=== PATIENT | male | born 1995 | race Caucasian/White ===

== ENCOUNTER → 2018-01-01 08:32 | Outpatient (CLI) | payer BC, SELFPAY ==
--- NOTE | 2018-01-01 08:41 | XR_ITS ---
XR knee LT 3V HISTORY: ITS.REASON: LT KNEE PAIN ORDERING PHYSICIAN: Margarita Sylvester PATIENT AGE: 22 years COMPARISON: FINDINGS: No fracture or dislocation. No lytic or blastic change. Normal mineralization. No significant arthritic changes evident. No other significant findings IMPRESSION: Negative Knee
== END ==
PROVIDERS: PCP Physician Assistant; Visit Provider Physician Assistant
DX: M25.562 Pain in left knee (principal)
CPT/HCPCS: 73562

== ENCOUNTER → 2018-07-12 08:26 | Outpatient (CLI) | payer BC, SELFPAY ==
[2018-07-12 15:05] LABS: Alanine Aminotransferase 37 U/L (12-78); Albumin Level 4.3 gm/dL (3.4-5.0); Albumin/Globulin Ratio 1.3 (1.1-1.8); Alkaline Phosphatase 93 U/L (46-116); Anion Gap 13.2 mEq/L (5-15); Aspartate Amino Transferase 24 U/L (15-37); Bilirubin,Total 1.1 mg/dL (0.2-1.0); Blood Urea Nitrogen 9 mg/dL (7-18); Calcium 9.4 mg/dL (8.5-10.1); Carbon Dioxide 29 mmol/L (21.0-32.0); Chloride 102 mmol/L (98-107); Chol/HDL Ratio 3.2 (1-3.5); Cholesterol 143 mg/dL (140-200); Creatinine,Serum 0.99 mg/dL (0.70-1.30); Estimated Glomerular Filt Rate 94 ml/min (>60); GFR (African American) 113 ML/MIN (>60); Globulin 3.2 gm/dl (1.3-3.2); Glucose 86 mg/dL (74-106); HDL Cholesterol 45 mg/dL (27-67); LDL Cholesterol 88 mg/dL (0-130); Potassium 4.2 mmoL/L (3.5-5.1); Sodium 140 mmol/L (136-145); Thyroid Stimulating Hormone 2.49 uIU/ml (0.358-3.740); Total Protein,Serum 7.5 gm/dL (6.4-8.2); Triglycerides 51 mg/dL (30-200); VLDL Cholesterol 10 mg/dL (0-40)
[2018-07-13 08:28] LABS: FSH 3.2 mIU/mL (1.5-12.4)
[2018-07-13 12:15] LABS: PSA, Free 0.18 ng/mL; Prolactin 17.2 ng/mL (4.0-15.2); Prostate Specific Ag 0.7 ng/mL (0.0-4.0)
[2018-07-16 06:09] LABS: Testosterone, Total, LC/MS 232.2 ng/dL (264.0-916.0); Testosterone,Free 9.9 pg/mL (9.3-26.5)
== END ==
PROVIDERS: PCP Physician Assistant; Visit Provider Physician Assistant
DX: R53.83 Other fatigue (principal); E29.1 Testicular hypofunction
CPT/HCPCS: 36415; 80053; 80061; 83001; 83002; 84146; 84153; 84154; 84402; 84403; 84443

== ENCOUNTER → 2018-07-19 10:35 | Outpatient (CLI) | payer BC, SELFPAY | PROVIDERS: PCP Physician Assistant; Visit Provider Physician Assistant | DX: R79.89 Other specified abnormal findings of blood chemistry (principal); E22.9 Hyperfunction of pituitary gland, unspecified; N62 Hypertrophy of breast; R45.4 Irritability and anger; R45.86 Emotional lability; R63.5 Abnormal weight gain; R53.83 Other fatigue ==

== ENCOUNTER → 2018-07-26 08:42 | Outpatient (CLI) | payer BC, SELFPAY | PROVIDERS: PCP Physician Assistant; Visit Provider Physician Assistant | DX: R79.89 Other specified abnormal findings of blood chemistry (principal); R22.9 Localized swelling, mass and lump, unspecified; N62 Hypertrophy of breast; R45.4 Irritability and anger; R45.86 Emotional lability; R63.5 Abnormal weight gain; R53.83 Other fatigue ==

== ENCOUNTER → 2019-02-06 08:35 | Outpatient (CLI) | payer BC, SELFPAY ==
--- NOTE | 2019-02-06 08:41 | XR_ITS ---
XR shoulder LT min 2V HISTORY: ITS.REASON: LT SHOULDER PAIN ORDERING PHYSICIAN: Monique Marie PATIENT AGE: 23 years Comparison: ... FINDINGS: No fracture or dislocation. No lytic or blastic change. There is normal mineralization. The joint spaces are well-preserved. No significant degenerative/arthritic changes. No erosive changes evident. IMPRESSION: Negative, no acute finding
== END ==
PROVIDERS: PCP Family Medicine; Visit Provider Family Medicine
DX: M25.512 Pain in left shoulder (principal)
CPT/HCPCS: 73030

== ENCOUNTER → 2019-07-30 08:45 | Outpatient (CLI) | payer BC, SELFPAY ==
[2019-07-30 15:19] LABS: Anion Gap 12.9 mEq/L (5-15); Blood Urea Nitrogen 9 mg/dL (7-18); Calcium 9.2 mg/dL (8.5-10.1); Carbon Dioxide 29 mmol/L (21.0-32.0); Chloride 104 mmol/L (98-107); Creatinine,Serum 1.01 mg/dL (0.70-1.30); Estimated Glomerular Filt Rate 91 ml/min (>60); GFR (African American) 110 ML/MIN (>60); Glucose 90 mg/dL (74-106); Potassium 3.9 mmoL/L (3.5-5.1); Sodium 142 mmol/L (136-145); Thyroid Stimulating Hormone 1.97 uIU/ml (0.358-3.740)
[2019-07-31 09:37] LABS: FSH 2.2 mIU/mL (1.5-12.4); LH 7.4 mIU/mL (1.7-8.6)
[2019-07-31 21:12] LABS: Estradiol 45.3 pg/mL (7.6-42.6)
[2019-08-01 17:25] LABS: Adrenocorticotropic Hormone 60.6 pg/mL (7.2-63.3)
[2019-08-04 13:34] LABS: Testosterone, Total, LC/MS 341.7 ng/dL (264.0-916.0); Testosterone,Free 12.3 pg/mL (9.3-26.5)
[2019-08-05 10:31] LABS: Cortisol,F,ug/L,U 18 ug/L (Undefined)
== END ==
PROVIDERS: Visit Provider Internal Medicine Endocrinology, Diabetes & Metabolism
DX: E34.9 Endocrine disorder, unspecified (principal); E29.1 Testicular hypofunction
CPT/HCPCS: 36415; 80048; 82024; 82530; 82533; 82670; 83001; 83002; 83498; 84402; 84403; 84443

== ENCOUNTER 2019-09-01 08:21 | Outpatient (CLI) | payer BC, SELFPAY ==
[2019-09-01 08:48] VITALS: BP 141/90; PULSE 86; RESP 18
[2019-09-01 09:31] VITALS: BMI 32.1
== END 2019-09-01 10:05 | disposition home or self-care (01) ==
PROVIDERS: Visit Provider Internal Medicine Endocrinology, Diabetes & Metabolism
DX: E27.8 Other specified disorders of adrenal gland (principal)
CPT/HCPCS: 83498; 96374; 96375

== ENCOUNTER → 2020-06-08 07:21 | Outpatient (CLI) | payer BC, SELFPAY ==
--- NOTE | 2020-06-08 07:29 | XR_ITS ---
PROCEDURE: XR SHOULDER LT MIN 2V CLINICAL INDICATION: PARATHESIA LEFT ARM PAIN LEFT SHOULDER COMPARISON: No exams were available for comparison FINDINGS: No fracture or dislocation. No lytic or blastic change. There is normal mineralization. The joint spaces are well-preserved. No significant degenerative/arthritic changes. No erosive changes evident. Other findings:None. IMPRESSION: No acute findings. Dictated by: Jonas Rojo MD 06/08/2020 14:27 Jonas Rojo MD in [place] 06/08/2020 14:27
--- NOTE | 2020-06-08 07:31 | XR_ITS ---
PROCEDURE: XR ELBOW LT MIN 3V CLINICAL INDICATION: PAIN LEFT ELBOW COMPARISON: No exams were available for comparison FINDINGS: No fracture or dislocation. No lytic or blastic change. There is normal mineralization. The joint spaces are well-preserved. No significant degenerative/arthritic changes. No erosive changes evident. Other findings:None. IMPRESSION: No acute findings. Dictated by: Jonas Rojo MD 06/08/2020 14:26 Jonas Rojo MD in [place] 06/08/2020 14:26
== END ==
PROVIDERS: PCP Nurse Practitioner Family; Visit Provider Nurse Practitioner Family
DX: M25.512 Pain in left shoulder (principal); M25.522 Pain in left elbow; R20.2 Paresthesia of skin; G89.29 Other chronic pain
CPT/HCPCS: 73030; 73080

== ENCOUNTER 2020-07-27 09:00 | Outpatient (RCR) | payer BC, SELFPAY | END 2020-08-10 16:29 | disposition home or self-care (01) | LOC: PT.CARL 09:00 | PROVIDERS: PCP Nurse Practitioner Family; Visit Provider Nurse Practitioner Family | DX: M25.522 Pain in left elbow; R20.2 Paresthesia of skin | CPT/HCPCS: 97010; 97014; 97033; 97035; 97110; 97163; G0283 ==

== ENCOUNTER 2022-10-20 06:25 | Emergency (ER) | payer OTHER, SELFPAY ==
[2022-10-20 06:42] VITALS: BP 171/103; PULSE 85; RESP 20; TEMP 36.6; O2SAT 98; BMI 34.8
[2022-10-20 06:49] VITALS: BP 171/103; PULSE 84; RESP 20; O2SAT 97
--- NOTE | 2022-10-20 06:49 | CT_ITS ---
FINAL REPORT TECHNIQUE: Thin section axial images were obtained from the lung bases to the pubic symphysis without IV contrast. Coronal reconstruction images were obtained from the axial data. Exam was performed using dose reduction technique. CLINICAL HISTORY: flank pain, rlq pain, nausea COMPARISON: None FINDINGS: The lung bases are clear. There is mild right hydronephrosis and hydroureter to the level of the urinary bladder. No obstructing stone identified. There is a 4 mm stone in the urinary bladder, likely recently passed. Left kidney and ureter are unremarkable. The gallbladder is present. The remaining unenhanced solid abdominal organs are unremarkable. There is no evidence of small bowel obstruction. The appendix is normal. GI tract is without acute abnormality. There is no lymphadenopathy or ascites. No acute osseous abnormality is identified. IMPRESSION: 4 mm bladder stone likely recently passed from right collecting system with residual right hydronephrosis and hydroureter. Reviewed, Interpreted and Dictated by Nunu Wyatt MD Transcribed by Shelly Cohen Authenticated and . [facility]
[2022-10-20 07:12] LABS: Chloride 107 mmol/L (98-107); Sodium 142 mmol/L (136-145)
[2022-10-20 07:14] LABS: Blood Urea Nitrogen 12 mg/dl (9-20); Creatinine Clearance Estimated 178 mL/min (50-200); Estimated Glomerular Filt Rate 90 ml/min (>60); GFR (African American) 108 ML/MIN (>60)
[2022-10-20 07:15] LABS: Alanine Aminotransferase 43 U/L (12-78); Albumin Level 4.6 g/dl (3.5-5.0); Albumin/Globulin Ratio 1.5 (1.1-1.8); Alkaline Phosphatase 100 U/L (38-126); Aspartate Amino Transferase 39 U/L (17-59); Bilirubin,Total 0.7 mg/dl (0.2-1.3); Calcium 8.9 mg/dl (8.4-10.2); Carbon Dioxide 27 mmol/L (22.0-30.0); Globulin 3.1 g/dL (1.3-3.2); Glucose 146 mg/dl (74-100); Total Protein,Serum 7.7 g/dl (6.3-8.2)
[2022-10-20 07:20] LABS: C-Reactive Protein 5.3 mg/L (0-4)
--- NOTE | 2022-10-20 07:22 | HMH.EDBACK ---
Discharge Plan Disposition Patient Disposition: Home, Self-Care Prescriptions Prescriptions: No Action No Known Home Medications Referrals Follow up/Referrals: Tremaine Al MD [Primary Care Provider] - See instructions Clinical Impressions Clinical Impression: Renal colic on right side Instructions Patient Instructions: DI for Kidney Stones Discharge ED Provider: Esther (ED),Gabriel Glaser Back Pain HPI General Chief Complaint: Back Pain/Injury Stated Complaint: Abdominal Pain with vomiting,right flank pain Time Seen by Provider: 10/20/22 07:00 Mode of Arrival: Ambulatory Source of Information: Patient and Medical Record Limitations: No Limitations Description of Symptoms (Recalled from ER Triage Doc. by RN): pt c/o right lower quadrant pain that woke him up at 0400. States that the pain radiates into his right lower quadrant. Pt is also nauseaus. Denies any injury. Pt does c/o difficulty with urination since he woke up today. States that yesterday he had no other issues with his urination. History of Present Illness HPI Narrative: acute rt flank pain this am with nausea - no fever or rash MD Complaint: back pain Duration: intermittent Similar Symptoms Previously: No Location: right flank Severity: moderate Related Data Home Medications Medication Instructions Recorded Confirmed No Known Home Medications 09/01/19 09/01/19 Allergies Allergy/AdvReac Type Severity Reaction Status Date / Time No Known Allergies Allergy Verified 09/01/19 08:53 [facility] Disclaimer: The information contained in this section may have been updated after the patient was seen, as this information can be updated by other users. Social History Smoking Status: Never smoker alcohol intake: current current occupational status: employed Travel in the last 8 weeks: None household members: family housing: house ROS Obtained: Yes All systems reviewed & no additional complaints except as documented Physical Exam General General appearance: alert Head Head exam: normocephalic Eye Eye exam: Present PERRL and EOMI ENT ENT exam: Present mucous membranes moist Neck Neck exam: Present trachea midline Respiratory Respiratory exam: Absent respiratory distress Cardiovascular Cardiovascular exam: Present regular rate Abdominal Exam Abdominal exam: Present soft Extremities Exam Extremities exam: Present full ROM Back Exam Back exam: Absent CVA tenderness (R) Neurological Exam Neurological exam: Present alert, oriented X3 and CN II-XII intact; Absent motor sensory deficit Psychiatric Psychiatric exam: Present normal affect Skin Skin exam: Absent rash Medical Decision Making Medical Records Medical records reviewed: Yes I reviewed the patient's medical records. Jason Inquiry Pt receiving controlled substance: No Vital Signs: 10/20/22 06:42 10/20/22 06:49 10/20/22 07:35 Temperature 98 F Temperature Source Oral Pulse Rate 84 76 Pulse Rate [Apical] 85 Respiratory Rate 20 20 18 Blood Pressure 171/103 H 126/82 Blood Pressure [Right Arm] 171/103 H Blood Pressure Mean 127 100 Blood Pressure Mean [Right Arm] 125 02 Sat by Pulse Oximetry 98 97 98 Oxygen Delivery Method Room Air Lab Data Lab results reviewed: Yes I reviewed the patient's lab results. Lab Results 10/20/22 06:40: WBC 11.4 H, RBC 5.51, Hgb 14.6, Hct 43.7, MCV 79.4 L, MCH 26.5 L, MCHC 33.4, RDW 13.7, Plt Count 373, MPV 9.6, Neut % (Auto) 69.4, Lymph % (Auto) 22.2, [place] % (Auto) 5.9, Eos % (Auto) 1.7, Baso % (Auto) 0.8, Neut # (Auto) 7.9 H, Lymph # (Auto) 2.5, [place] # (Auto) 0.7, Eos # (Auto) 0.2, Baso # (Auto) 0.1 10/20/22 06:40: Sodium 142, Potassium 4.0, Chloride 107, Carbon Dioxide 27, Anion Gap 12.0, BUN 12, Creatinine 1.00, Estimated Creat Clear 178, Estimated GFR 90, Est GFR ( Amer) 108, Glucose 146 H, Calcium 8.9, Total Bilirubin 0.7, AST 39, ALT 43, Alkaline Phosphatase 100, C-Reactive Prote
[2022-10-20 07:26] LABS: Basophils # 0.1 K/mm3 (0-0.2); Basophils % 0.8 % (0.1-2.0); Eosinophils # 0.2 K/mm3 (0.0-0.4); Eosinophils % 1.7 % (0.1-12.0); Hematocrit 43.7 % (42.0-52.0); Hemoglobin 14.6 g/dL (14.1-18.0); Lymphocytes # 2.5 K/mm3 (0.7-4.5); Lymphocytes % 22.2 % (10-50); Mean Corpuscular HGB Conc 33.4 g/dL (31.8-35.4); Mean Corpuscular Hemoglobin 26.5 pg (27.0-31.2); Mean Corpuscular Volume 79.4 fl (80-94); Mean Platelet Volume 9.6 fl (7.4-10.4); Monocytes # 0.7 K/mm3 (0.1-1.0); Monocytes % 5.9 % (1.7-9.3); Neutrophils # 7.9 K/mm3 (1.8-7.8); Neutrophils % 69.4 % (37.0-80.0); Platelet Count 373 K/mm3 (142-424); Red Blood Count 5.51 M/mm3 (4.60-6.20); Red Cell Distribution Width 13.7 % (11.5-17.5); White Blood Count 11.4 K/mm3 (4.8-10.8)
[2022-10-20 07:30] LABS: Microscopic, Urine URINE MICROSCOPIC (MICROSCOPIC)
[2022-10-20 07:31] LABS: Appearance,Urine CLOUDY (Clear); Blood, Urine Negative (Negative); Color,Urine YELLOW (Yellow); Glucose,Urine (UA) Negative (Negative); Ketones,Urine Negative (Negative); Leukocyte Esterase,Urine Negative (Negative); Nitrate,Urine Negative (Negative); PH,Urine 5.5 (5.0-8.5); Protein,Urine 1+ (Negative); Specific Gravity, Urine >= 1.030 (1.005-1.030); Urobilinogen,Urine 0.2 EU/dl (0.2)
[2022-10-20 07:35] VITALS: BP 126/82; PULSE 76; RESP 18; O2SAT 98
[2022-10-20 07:37] LABS: Bilirubin,Urine Negative (Negative)
[2022-10-20 07:40] LABS: Procalcitonin 0.064 ng/mL (0.0-2.0)
[2022-10-20 07:42] LABS: Squamous Epithelial Cell,Urine Occasional #/hpf (0-5); WBC,Urine Occasional #/hpf (0-3)
--- NOTE | 2022-10-20 07:53 | PC.NURSE ---
Patient ambulated to bathroom. Pt/family updated on plan of care.
--- NOTE | 2022-10-20 08:00 | PC.NURSE ---
Patient passed kidney stone, visible in strainer. notified.
[2022-10-20 08:22] LABS: Erythrocyte Sedimentation Rate 6 mm/hr (0-15)
[2022-10-20 08:36] VITALS: BP 142/93; PULSE 95; RESP 14; TEMP 36.8; O2SAT 98
== END 2022-10-20 08:39 | disposition home or self-care (01) ==
PROVIDERS: Emergency Provider Emergency Medicine; PCP Family Medicine
DX: N23 Unspecified renal colic (principal)
CPT/HCPCS: 74176; 80053; 81001; 84145; 85025; 85651; 86140; 96361; 96374; 96375; 99285; J2405

== ENCOUNTER 2023-09-13 16:40 | Outpatient (CLI) | payer BC, SELFPAY | END 2023-09-13 23:59 | LOC: LAB.DROPOF 16:40 | PROVIDERS: PCP Nurse Practitioner Family; Visit Provider Nurse Practitioner Family | DX: H92.03 Otalgia, bilateral (principal); J02.9 Acute pharyngitis, unspecified; J38.4 Edema of larynx; R05.1 Acute cough; F17.220 Nicotine dependence, chewing tobacco, uncomplicated | CPT/HCPCS: 87070 ==

== ENCOUNTER 2025-01-12 10:00 | Day surgery (SDC) | payer BC, SELFPAY ==
[2025-01-12] VITALS (17 sets, daily range): BP systolic 125–178; BP diastolic 69–116; PULSE 78–112; RESP 16–24; TEMP 36.8–38; O2SAT 93–99; BMI 36.2
[2025-01-12 10:12] LABS: Microscopic, Urine URINE MICROSCOPIC (MICROSCOPIC)
--- NOTE | 2025-01-12 10:26 | ED_ITS ---
Discharge Plan Disposition Patient Disposition: Admitted Clinical Impressions Clinical Impression: Acute appendicitis Discharge ED Provider: Jerrod Maya General Adult HPI <MARLIN Mullen - Last Filed: 01/12/25 14:00> General Chief complaint: Abdominal Pain Stated complaint: Ref. Dr. Jaymie Dominguez- Lower abd. pain, appendicitis Time Seen by Provider: 01/12/25 10:15 Mode of Arrival: Ambulatory Source of Information: Patient Limitations: No Limitations History of Present Illness HPI narrative: 29-year-old male presents to the emergency department accompanied by his sister, at the request of his company/work medical provider onsite who saw the patient and recommended emergency department evaluation for a less than 24-hour history of right lower quadrant abdominal pain, to R/o appendicitis . Patient admits to subjective fever and chills last night, had some nausea associated with it last night, was able to have p.o. intake last night and this morning, denies any vomiting, denies any diarrhea constipation, denies any chest pain shortness of breath, denies any urinary type symptomatology, denies hematochezia, hematemesis, hematuria, melena, or any other acute symptomatology, patient has no other real relevant past medical history, takes no other medications at home, denies any alcohol tobacco or drug use, does have previous history of kidney stones, when asking the patient if this is similar, he states no this is different . Initial triage vitals notable for tachycardia otherwise unremarkable. Onset (ago): day(s) Related Data Previous Rx's ?Medication ?Instructions ?Recorded hydrocodone 5 mg-acetaminophen 325 1 tab PO Q4H PRN Pain #15 tabs 01/12/25 mg tablet Allergies Allergy/AdvReac Type Severity Reaction Status Date / Time No Known Allergies Allergy Verified 01/12/25 10:52 PFSH <MARLIN Mullen - Last Filed: 01/12/25 14:00> PFS Disclaimer: The information contained in this section may have been updated after the patient was seen, as this information can be updated by other users. Medical History Kidney stones Surgical History No significant past surgical history Family History Father Hyperlipidemia Hypertension Grandmother Hypertension Grandfather Diabetes Hyperlipidemia Hypertension Coronary artery disease Cancer prostate Social History Smoking Status: Never smoker quit status: considering quitting second hand exposure: No alcohol intake: current alcohol intake frequency: holidays/special occasions only substance use type: denies use current occupational status: employed Travel in the last 8 weeks?: None household members: family housing: house lives independently: Yes marital status: single Have you lived/traveled outside [place] in past 30 days?: No Contact w/someone who lives/traveled outside US past 30 days?: No Exposure to someone with infectious disease in past 14 days?: No Do you have a fever (greater than 100.4 F or 38 C)?: No Have you tested positive for COVID-19?: No Exposed to someone with COVID-19 in past 14 days?: No Do you have a sore throat?: No Do you have a cough?: No Do you have any weakness?: No Do you have any diarrhea?: No Are you experiencing any unusual bleeding?: No Do you have any muscle aches/pain?: No Do you have any abdominal pain?: Yes Are you experiencing loss of taste or smell?: No Other Medical History Have you received the Pneumonia Vaccine: No <MARLIN Mullen - Last Filed: 01/12/25 14:00> ROS Obtained: Yes All systems reviewed & no additional complaints except as documented Physical Exam <MARLIN Mullen - Last Filed: 01/12/25 14:00> General General appearance: alert and in no apparent distress Head Head exam: atraumatic and normocephalic Eye Eye exam: Present PERRL and EOMI ENT ENT exam: Present mucous membranes moist Neck Neck exam: Present normal inspection Chest Chest inspection: Present normal inspection and symmetric chest wall rise Respiratory Respiratory exam: Present normal lung sounds bilaterally; Absent respiratory distress Cardiovascular Cardiovascular exam: Present regular rate and normal rhythm Abdominal Exam Abdominal exam: Present soft, tenderness, Franklin's sign and tenderness at McBurney's Point; Absent Rovsing's sign, mass or pulsatile mass Abdominal tenderness: Present RUQ, RLQ and mild Comment: Mild right lower quadrant and mild right upper quadrant tenderness to palpation. Extremities Exam Extremities exam: Present normal inspection Neurological Exam Neurological exam: Present alert and oriented X3 Psychiatric Psychiatric exam: Present normal affect Skin Skin exam: Present warm and dry Medical Decision Making <MARLIN Mullen - Last Filed: 01/12/25 14:00> Medical Records Medical records reviewed: Yes I reviewed the patient's medical records. Screening: Per USPSTF and CDC recommendations, given the prevalence of disease in our region, it is our hospital?s policy to screen for HIV and viral Hepatitis for all patients aged 18 and over and those with ongoing risk factors. Jason Inquiry Pt receiving controlled substance: Yes Jason was queried for this patient: No Reason not queried -: Emergent pt cond-no time Risks and benefits of using a controlled substance: were discussed with pt by me Vital Signs: 01/12/25 10:34 01/12/25 10:46 01/12/25 10:58 Temperature 98.5 F Temperature Source Oral Pulse Rate 94 H 97 H Pulse Rate [Left] 112 H Respiratory Rate 16 16 18 Blood Pressure 134/94 H 143/96 H Blood Pressure [Right Arm] 178/104 H Blood Pressure Mean [Right Arm] 128 Blood Pressure Source Blood Pressure Source [Right Arm] Automatic Cuff Blood Pressure Position [Right Arm] Sitting 02 Sat by Pulse Oximetry 99 98 95 Oxygen Delivery Method Room Air 01/12/25 12:01 01/12/25 12:31 01/12/25 13:15 Temperature Temperature Source Pulse Rate 92 H 78 88 Pulse Rate [Left] Respiratory Rate Blood Pressure 134/91 H 137/87 144/98 H Blood Pressure [Right Arm] Blood Pressure Mean [Right Arm] Blood Pressure Source Blood Pressure Source [Right Arm] Blood Pressure Position [Right Arm] 02 Sat by Pulse Oximetry 98 97 95 Oxygen Delivery Method Room Air Room Air Room Air 01/12/25 13:32 Temperature 98.9 F Temperature Source Tympanic Pulse Rate 85 Pulse Rate [Left] Respiratory Rate 16 Blood Pressure 144/98 H Blood Pressure [Right Arm] Blood Pressure Mean [Right Arm] Blood Pressure Source Automatic Cuff Blood Pressure Source [Right Arm] Blood Pressure Position [Right Arm] 02 Sat by Pulse Oximetry Oxygen Delivery Method Room Air Lab Data Lab results reviewed: Yes I reviewed the patient's lab results. Lab Results 01/12/25 10:07: Urine Color Yellow, Urine Appearance Clear, Urine pH 6.0, Ur Specific [place] 1.025, Urine Protein Trace, Urine Glucose (UA) Negative, Urine Ketones Negative, Urine Blood Negative, Urine Nitrate Negative, Urine Bilirubin Negative, Urine Urobilinogen 0.2, Ur Leukocyte Esterase Trace, Urine RBC None, Urine WBC 3-5, Ur Squamous Epith Cells Occasional, Urine Bacteria Trace, Urine Mucus Trace 01/12/25 10:16: WBC 12.9 H, RBC 5.69, Hgb 14.6, Hct 46.1, MCV 81.0, MCH 25.7 L, MCHC 31.7 L, RDW 13.7, Plt Count 340, MPV 12.0 H, Neut % (Auto) 71.7, Lymph % (Auto) 17.4, Bucks % (Auto) 9.7 H, Eos % (Auto) 0.5, Baso % (Auto) 0.4, Neut # (Auto) 9.2 H, Lymph # (Auto) 2.2, Bucks # (Auto) 1.3 H, Eos # (Auto) 0.1, Baso # (Auto) 0.1, Sodium 140, Potassium 4.1, Chloride 103, Carbon Dioxide 30, Anion Gap 11.1, BUN 13, Creatinine 1.00, Estimated GFR 88, Est GFR ( Amer) 107, Glucose 101 H, Lactate 1.6, Calcium 9.6, Total Bilirubin 1.2, AST 37, ALT 38, Alkaline Phosphatase 99, Total Protein 8.0, Albumin 4.9, Globulin 3.1, Albumin/Globulin Ratio 1.6, Lipase 68, HCV Ab DORA w/Rflx PCR Qn Negative, HIV Ag/Ab Combo Qual Negative 01/12/25 15:15: Urine Color Yellow, Urine Appearance Slightly cloudy, Urine pH 6.0, Ur Specific [place] 1.015, Urine Protein Negative, Urine Glucose (UA) Negative, Urine Ketones Negative, Urine Blood Trace-i, Urine Nitrate Negative, Urine Bilirubin Negative, Urine Urobilinogen 0.2, Ur Leukocyte Esterase Negative, Urine RBC 3-5, Urine WBC Occasional, Ur Squamous Epith Cells Occasional, Urine Bacteria Trace 01/12/25 10:16 01/12/25 10:16 Orders (Tests/Meds): ED MEDICATIONS Discontinued Medications Generic Name Dose Route Start Last Admin Trade Name Freq PRN Reason Stop Dose Admin Hydrocodone Bitart/Acetaminophen 1 tab 01/12/25 16:23 Hydrocodone/Apap 5/325 Mg Tablet PO 01/12/25 16:24 ONCE ONE Hydromorphone HCl 0.5 mg 01/12/25 16:35 Hydromorphone 2mg/Ml Syringe IV 01/12/25 18:35 Q5MINP PRN Severe Pain (7-10) Piperacillin Sod/Tazobactam 50 mls @ 100 mls/hr 01/12/25 13:04 01/12/25 13:26 Sod 3.375 gm/ Sodium Chloride IV 01/12/25 13:33 100 mls/hr ONCE ONE Administration Sodium Chloride 1,000 mls @ 999 mls/hr 01/12/25 13:35 01/12/25 13:39 Sod Chlor 0.9% 1000ml Bag IV 01/12/25 14:35 999 mls/hr .Q1H1M ONE Administration Iopamidol 75 ml 01/12/25 11:23 01/12/25 11:23 Iopamidol-370 (76%);100ml Bottle IV 01/12/25 11:24 75 ml ONCE ONE Administration Meperidine HCl 12.5 mg 01/12/25 16:35 Meperidine 25mg/Ml 1ml Syringe IV 01/12/25 18:35 Q5MINP PRN Shivering Morphine Sulfate 4 mg 01/12/25 10:32 01/12/25 10:56 Morphine 4mg/Ml Syringe IV 01/12/25 10:33 4 mg ONCE ONE Administration Morphine Sulfate 2 mg 01/12/25 16:35 01/12/25 16:50 Morphine 2mg/Ml Syringe IV 01/12/25 18:35 2 mg Q5MINP PRN Administration Moderate Pain (4-6) Naloxone HCl 0.4 mg 01/12/25 16:35 Naloxone 0.4mg/Ml Vial IV 01/12/25 18:35 Q3MINP PRN Decreased Respirations Ondansetron HCl 4 mg 01/12/25 10:32 01/12/25 10:56 Ondansetron 4mg/2ml Vial IV 01/12/25 10:33 4 mg ONCE ONE Administration Ondansetron HCl 4 mg 01/12/25 16:35 01/12/25 17:00 Ondansetron 4mg/2ml Vial IV 01/12/25 18:35 4 mg Q6HP PRN Administration Nausea Sodium Chloride 10 ml 01/12/25 11:23 01/12/25 11:23 Sodium Chloride 0.9% 10ml Syr (Rad Only) IV 02/11/25 11:22 10 ml NEEDED PRN Administration Maintain IV Site ORDERS Category Date Time Status CT abdomen pelvis w con Stat Cat Scan 01/12/25 10:31 Completed Complete Blood Count Auto Diff Stat Lab 01/12/25 10:16 Completed Comprehensive Metabolic Panel Stat Lab 01/12/25 10:16 Completed HIV Combo Stat Lab 01/12/25 10:16 Completed Hepatitis C Ab Qual. W/ RFX Stat Lab 01/12/25 10:16 Completed Lactic Acid Stat Lab 01/12/25 10:16 Completed Lipase Stat Lab 01/12/25 10:16 Completed UA [Urinalysis and Microscopic] Stat Lab 01/12/25 10:07 Completed Urinalysis (cathed specimen) Routine Lab 01/12/25 15:15 Completed Medical Decision Narrative: 29-year-old male presents the emergency department with lower quad abdominal pain, differential diagnose include but not limited to cholecystitis, cholelithiasis, choledocholithiasis, enthesitis, volvulus, ileus, nephrolithiasis, acute UTI, ureterolithiasis, acute pyelonephritis, bowel obstruction, diverticulitis among others. I discussed patient case with attending physician Obtain basic laboratory studies, lactic acid level lipase level, urinalysis, will obtain CT abdomen pelvis with contrast, will give 4 mg IV morphine and 4 mg IV Zofran for pain and nausea. CBC notable for leukocytosis of 12.9, otherwise unremarkable CBC Urinalysis unremarkable, CMP is unremarkable, no lactic acidosis and no lipase elevation. I reviewed the patient's CT and pelvis with contrast along the corresponding radiologic report, findings concerning for acute/uncomplicated appendicitis. Will page the general surgery team. Discussed this patient's case with the general surgeon on-call at approximately 1 PM, he recommends admit to the hospitalist, and most likely OR today, for acute appendicitis, will prophylactically start IV Zosyn and IV NS 1 L. I discussed need for admission and possible surgical intervention for acute appendicitis, with patient family bedside patient family agree with current treatment plan/admission plan. I discussed this patient's case with the on-call hospitalist Dr. Jacobson over the phone at approximately 1:26 PM, he is agreement with current admission plan/treatment plan with surgery take the OR today. <Jerrod Maya MD - Last Filed: 01/12/25 23:12> Vital Signs: 01/12/25 10:34 01/12/25 10:46 01/12/25 10:58 Temperature 98.5 F Temperature Source Oral Pulse Rate 94 H 97 H Pulse Rate [Left] 112 H Respiratory Rate 16 16 18 Blood Pressure 134/94 H 143/96 H Blood Pressure [Right Arm] 178/104 H Blood Pressure Mean [Right Arm] 128 Blood Pressure Source Blood Pressure Source [Right Arm] Automatic Cuff Blood Pressure Position [Right Arm] Sitting 02 Sat by Pulse Oximetry 99 98 95 Oxygen Delivery Method Room Air 01/12/25 12:01 01/12/25 12:31 01/12/25 13:15 Temperature Temperature Source Pulse Rate 92 H 78 88 Pulse Rate [Left] Respiratory Rate Blood Pressure 134/91 H 137/87 144/98 H Blood Pressure [Right Arm] Blood Pressure Mean [Right Arm] Blood Pressure Source Blood Pressure Source [Right Arm] Blood Pressure Position [Right Arm] 02 Sat by Pulse Oximetry 98 97 95 Oxygen Delivery Method Room Air Room Air Room Air 01/12/25 13:32 Temperature 98.9 F Temperature Source Tympanic Pulse Rate 85 Pulse Rate [Left] Respiratory Rate 16 Blood Pressure 144/98 H Blood Pressure [Right Arm] Blood Pressure Mean [Right Arm] Blood Pressure Source Automatic Cuff Blood Pressure Source [Right Arm] Blood Pressure Position [Right Arm] 02 Sat by Pulse Oximetry Oxygen Delivery Method Room Air Lab Data Lab Results 01/12/25 10:07: Urine Color Yellow, Urine Appearance Clear, Urine pH 6.0, Ur Specific [place] 1.025, Urine Protein Trace, Urine Glucose (UA) Negative, Urine Ketones Negative, Urine Blood Negative, Urine Nitrate Negative, Urine Bilirubin Negative, Urine Urobilinogen 0.2, Ur Leukocyte Esterase Trace, Urine RBC None, Urine WBC 3-5, Ur Squamous Epith Cells Occasional, Urine Bacteria Trace, Urine Mucus Trace 01/12/25 10:16: WBC 12.9 H, RBC 5.69, Hgb 14.6, Hct 46.1, MCV 81.0, MCH 25.7 L, MCHC 31.7 L, RDW 13.7, Plt Count 340, MPV 12.0 H, Neut % (Auto) 71.7, Lymph % (Auto) 17.4, Bucks % (Auto) 9.7 H, Eos % (Auto) 0.5, Baso % (Auto) 0.4, Neut # (Auto) 9.2 H, Lymph # (Auto) 2.2, [place] # (Auto) 1.3 H, Eos # (Auto) 0.1, Baso # (Auto) 0.1, Sodium 140, Potassium 4.1, Chloride 103, Carbon Dioxide 30, Anion Gap 11.1, BUN 13, Creatinine 1.00, Estimated GFR 88, Est GFR ( Amer) 107, Glucose 101 H, Lactate 1.6, Calcium 9.6, Total Bilirubin 1.2, AST 37, ALT 38, Alkaline Phosphatase 99, Total Protein 8.0, Albumin 4.9, Globulin 3.1, Albumin/Globulin Ratio 1.6, Lipase 68, HCV Ab DORA w/Rflx PCR Qn Negative, HIV Ag/Ab Combo Qual Negative 01/12/25 15:15: Urine Color Yellow, Urine Appearance Slightly cloudy, Urine pH 6.0, Ur Specific [place] 1.015, Urine Protein Negative, Urine Glucose (UA) Negative, Urine Ketones Negative, Urine Blood Trace-i, Urine Nitrate Negative, Urine Bilirubin Negative, Urine Urobilinogen 0.2, Ur Leukocyte Esterase Negative, Urine RBC 3-5, Urine WBC Occasional, Ur Squamous Epith Cells Occasional, Urine Bacteria Trace Orders (Tests/Meds): ED MEDICATIONS Discontinued Medications Generic Name Dose Route Start Last Admin Trade Name Freq PRN Reason Stop Dose Admin Hydrocodone Bitart/Acetaminophen 1 tab 01/12/25 16:23 Hydrocodone/Apap 5/325 Mg Tablet PO 01/12/25 16:24 ONCE ONE Hydromorphone HCl 0.5 mg 01/12/25 16:35 Hydromorphone 2mg/Ml Syringe IV 01/12/25 18:35 Q5MINP PRN Severe Pain (7-10) Piperacillin Sod/Tazobactam 50 mls @ 100 mls/hr 01/12/25 13:04 01/12/25 13:26 Sod 3.375 gm/ Sodium Chloride IV 01/12/25 13:33 100 mls/hr ONCE ONE Administration Sodium Chloride 1,000 mls @ 999 mls/hr 01/12/25 13:35 01/12/25 13:39 Sod Chlor 0.9% 1000ml Bag IV 01/12/25 14:35 999 mls/hr .Q1H1M ONE Administration Iopamidol 75 ml 01/12/25 11:23 01/12/25 11:23 Iopamidol-370 (76%);100ml Bottle IV 01/12/25 11:24 75 ml ONCE ONE Administration Meperidine HCl 12.5 mg 01/12/25 16:35 Meperidine 25mg/Ml 1ml Syringe IV 01/12/25 18:35 Q5MINP PRN Shivering Morphine Sulfate 4 mg 01/12/25 10:32 01/12/25 10:56 Morphine 4mg/Ml Syringe IV 01/12/25 10:33 4 mg ONCE ONE Administration Morphine Sulfate 2 mg 01/12/25 16:35 01/12/25 16:50 Morphine 2mg/Ml Syringe IV 01/12/25 18:35 2 mg Q5MINP PRN Administration Moderate Pain (4-6) Naloxone HCl 0.4 mg 01/12/25 16:35 Naloxone 0.4mg/Ml Vial IV 01/12/25 18:35 Q3MINP PRN Decreased Respirations Ondansetron HCl 4 mg 01/12/25 10:32 01/12/25 10:56 Ondansetron 4mg/2ml Vial IV 01/12/25 10:33 4 mg ONCE ONE Administration Ondansetron HCl 4 mg 01/12/25 16:35 01/12/25 17:00 Ondansetron 4mg/2ml Vial IV 01/12/25 18:35 4 mg Q6HP PRN Administration Nausea Sodium Chloride 10 ml 01/12/25 11:23 01/12/25 11:23 Sodium Chloride 0.9% 10ml Syr (Rad Only) IV 02/11/25 11:22 10 ml NEEDED PRN Administration Maintain IV Site ORDERS Category Date Time Status CT abdomen pelvis w con Stat Cat Scan 01/12/25 10:31 Completed Complete Blood Count Auto Diff Stat Lab 01/12/25 10:16 Completed Comprehensive Metabolic Panel Stat Lab 01/12/25 10:16 Completed HIV Combo Stat Lab 01/12/25 10:16 Completed Hepatitis C Ab Qual. W/ RFX Stat Lab 01/12/25 10:16 Completed Lactic Acid Stat Lab 01/12/25 10:16 Completed Lipase Stat Lab 01/12/25 10:16 Completed UA [Urinalysis and Microscopic] Stat Lab 01/12/25 10:07 Completed Urinalysis (cathed specimen) Routine Lab 01/12/25 15:15 Completed Medical Decision Narrative: 29-year-old male presents the emergency department with lower quad abdominal pain, differential diagnose include but not limited to cholecystitis, cholelithiasis, choledocholithiasis, enthesitis, volvulus, ileus, nephrolithiasis, acute UTI, ureterolithiasis, acute pyelonephritis, bowel obstruction, diverticulitis among others. I discussed patient case with attending physician Obtain basic laboratory studies, lactic acid level lipase level, urinalysis, will obtain CT abdomen pelvis with contrast, will give 4 mg IV morphine and 4 mg IV Zofran for pain and nausea. CBC notable for leukocytosis of 12.9, otherwise unremarkable CBC Urinalysis unremarkable, CMP is unremarkable, no lactic acidosis and no lipase elevation. I reviewed the patient's CT and pelvis with contrast along the corresponding radiologic report, findings concerning for acute/uncomplicated appendicitis. Will page the general surgery team. Discussed this patient's case with the general surgeon on-call at approximately 1 PM, he recommends admit to the hospitalist, and most likely OR today, for acute appendicitis, will prophylactically start IV Zosyn and IV NS 1 L. I discussed need for admission and possible surgical intervention for acute appendicitis, with patient family bedside patient family agree with current treatment plan/admission plan. I discussed this patient's case with the on-call hospitalist Dr. Jacobson over the phone at approximately 1:26 PM, he is agreement with current admission plan/treatment plan with surgery take the OR today. I was consulted by the TEJINDER, and we discussed the complexity of the problems being addressed. I approve the treatment and management plan for this patient's care in the emergency department, thus performing a substantive portion of the medical decision making. Jerrod Maya MD Critical Care <MARLIN Mullen - Last Filed: 01/12/25 14:00> Critical Care Time Critical Care Time: No
--- NOTE | 2025-01-12 10:31 | CT_ITS ---
FINAL REPORT TECHNIQUE: After the administration of intravenous contrast, axial images were obtained through the abdomen and pelvis by computed tomography. This study was performed with technique to keep radiation doses as low as reasonably achievable, (ALARA). Individualized dose reduction techniques using automated exposure control or adjustment of the MA and/or KV according to the patient's size were employed. CLINICAL HISTORY: rt flank pain h/o stones COMPARISON: 10/20/2022 FINDINGS: Abdomen: The lung bases are clear. The liver is moderately infiltrated. Gallbladder is present. The spleen is unremarkable. The adrenals are normal. The pancreas is unremarkable. The kidneys enhance appropriately. The aorta is normal in caliber. There is no free fluid or adenopathy. Pelvis: The appendix is enlarged measuring up to 9 mm in diameter with mild surrounding inflammation. Findings are concerning for acute, uncomplicated appendicitis. The urinary bladder is decompressed. There is no free fluid or adenopathy. IMPRESSION: Findings concerning for acute, uncomplicated appendicitis. Reviewed, Interpreted and Dictated by Joby Mueller MD Transcribed by Tracy Weiss Authenticated and [facility]
[2025-01-12 10:41] LABS: Basophils # 0.1 K/mm3 (0-0.2); Basophils % 0.4 % (0.1-2.0); Eosinophils # 0.1 Kmm3 (0.0-0.4); Eosinophils % 0.5 % (0.1-12.0); Hematocrit 46.1 % (42.0-52.0); Hemoglobin 14.6 g/dL (14.1-18.0); Immature Granulocytes # 0.04 10^3uL; Immature Granulocytes % 0.3 %; Lymphocytes # 2.2 K/mm3 (0.7-4.5); Lymphocytes % 17.4 % (10-50); Mean Corpuscular HGB Conc 31.7 g/dL (31.8-35.4); Mean Corpuscular Hemoglobin 25.7 pg (27.0-31.2); Monocytes # 1.3 K/mm3 (0.1-1.0); Monocytes % 9.7 % (1.7-9.3); Neutrophils # 9.2 K/mm3 (1.8-7.8); Neutrophils % 71.7 % (37.0-80.0); Nucleated Red Blood Cells # 0 10^3/uL; Nucleated Red Blood Cells % 0 %; Platelet Count 340 K/mm3 (142-424); Red Blood Count 5.69 M/mm3 (4.60-6.20); Red Cell Distribution Width 13.7 % (11.5-17.5); Red Cell Distribution Width-SD 39.7 fL; White Blood Count 12.9 K/mm3 (4.8-10.8)
[2025-01-12 10:42] LABS: Appearance,Urine CLEAR (Clear); Bilirubin,Urine Negative (Negative); Blood, Urine Negative (Negative); Color,Urine YELLOW (Yellow); Glucose,Urine (UA) Negative (Negative); Ketones,Urine Negative (Negative); Leukocyte Esterase,Urine TRACE (Negative); Nitrate,Urine Negative (Negative); Protein,Urine TRACE (Negative); Specific Gravity, Urine 1.025 (1.005-1.030); Urobilinogen,Urine 0.2 EU/dl (0.2)
[2025-01-12 10:42] LABS: Albumin Level 4.9 g/dl (3.5-5.0); Chloride 103 mmol/L (98-107); Sodium 140 mmol/L (136-145)
[2025-01-12 10:43] LABS: Potassium 4.1 mmoL/L (3.5-5.1)
[2025-01-12 10:45] LABS: Alanine Aminotransferase 38 U/L (12-78); Albumin/Globulin Ratio 1.6 (1.1-1.8); Alkaline Phosphatase 99 U/L (38-126); Anion Gap 11.1 mEq/L (5-15); Aspartate Amino Transferase 37 U/L (17-59); Bilirubin,Total 1.2 mg/dl (0.2-1.3); Blood Urea Nitrogen 13 mg/dl (9-20); Carbon Dioxide 30 mmol/L (22.0-30.0); Estimated Glomerular Filt Rate 88 ml/min (>60); GFR (African American) 107 ML/MIN (>60); Globulin 3.1 g/dL (1.3-3.2)
[2025-01-12 10:46] LABS: Calcium 9.6 mg/dl (8.4-10.2); Glucose 101 mg/dl (74-100); Lipase 68 U/L (23-300)
[2025-01-12 10:47] LABS: Lactic Acid 1.6 mmol/L (0.7-2.1)
[2025-01-12] MEDS: ONDANSETRON 4MG/2ML VIAL 4 MG IV ×2 (10:56→17:00)
[2025-01-12] MEDS: MORPHINE 4MG/ML SYRINGE 4 MG IV (10:56)
[2025-01-12 11:06] LABS: Bacteria,Urine Trace /lpf; Mucus,Urine Trace /lpf; Squamous Epithelial Cell,Urine Occasional #/hpf (0-5)
[2025-01-12] MEDS: IOPAMIDOL-370 (76%);100ML BOTTLE 75 ML IV (11:23)
[2025-01-12] MEDS: SODIUM CHLORIDE 0.9% 10ML SYR (RAD ONLY) 10 ML IV (11:23)
[2025-01-12 11:57] LABS: HIV Combo NEGATIVE (Negative)
[2025-01-12 12:05] LABS: Hepatitis C Ab Qual. W/ RFX NEGATIVE (Negative)
--- NOTE | 2025-01-12 13:01 | PC.NURSE ---
[facility]ID SPEAKING WITH DR ESCOTO
--- NOTE | 2025-01-12 13:05 | PC.NURSE ---
in house counsel notified of admission
--- NOTE | 2025-01-12 13:07 | P.HP_ITS ---
HPI HPI HPI: Patient is a 29-year-old male from [facility], otherwise healthy who had developed right lower quadrant pain overnight with some associated subjective fevers and chills. He had intolerance to oral intake. He presented to the emergency department where he seen and evaluated and found to have a leukocytosis of 12,900. He underwent CT scan which reveals findings of prominent 9 mm appendix with periappendiceal fat stranding consistent with uncomplicated acute appendicitis. Surgery was consulted and plan was made to make arrangements for urgent appendectomy. [facility] Disclaimer: The information contained in this section may have been updated after the patient was seen, as this information can be updated by other users. Medical History Kidney stones Surgical History No significant past surgical history Family History Father Hyperlipidemia Hypertension Grandmother Hypertension Grandfather Diabetes Hyperlipidemia Hypertension Coronary artery disease Cancer prostate Social History Smoking Status: Never smoker quit status: considering quitting second hand exposure: No alcohol intake: current alcohol intake frequency: holidays/special occasions only substance use type: denies use current occupational status: employed Travel in the last 8 weeks?: None household members: family housing: house lives independently: Yes marital status: single Have you lived/traveled outside [place] in past 30 days?: No Contact w/someone who lives/traveled outside US past 30 days?: No Exposure to someone with infectious disease in past 14 days?: No Do you have a fever (greater than 100.4 F or 38 C)?: No Have you tested positive for COVID-19?: No Exposed to someone with COVID-19 in past 14 days?: No Do you have a sore throat?: No Do you have a cough?: No Do you have any weakness?: No Do you have any diarrhea?: No Are you experiencing any unusual bleeding?: No Do you have any muscle aches/pain?: No Do you have any abdominal pain?: Yes Are you experiencing loss of taste or smell?: No Other Medical History Have you received the Pneumonia Vaccine: No Meds Home Medications and Allergies Home Medications ?Medication ?Instructions ?Recorded ?Confirmed ?Type No Known Home Medications 01/12/25 01/12/25 History New Prescriptions to Start Prescriptions: Allergies Allergy/AdvReac Type Severity Reaction Status Date / Time No Known Allergies Allergy Verified 01/12/25 10:52 Exam Data for Last 24 hours Vital signs and Labs for Last 24 Hours: Temp Pulse Resp BP Pulse Ox O2 Del Method 98.5 F 78 18 137/87 97 Room Air 01/12/25 10:46 01/12/25 12:31 01/12/25 10:58 01/12/25 12:31 01/12/25 12:31 01/12/25 12:31 Laboratory Results - last 24 hr 01/12/25 10:07: Urine Color Yellow, Urine Appearance Clear, Urine pH 6.0, Ur Specific [place] 1.025, Urine Protein Trace, Urine Glucose (UA) Negative, Urine Ketones Negative, Urine Blood Negative, Urine Nitrate Negative, Urine Bilirubin Negative, Urine Urobilinogen 0.2, Ur Leukocyte Esterase Trace, Urine RBC None, Urine WBC 3-5, Ur Squamous Epith Cells Occasional, Urine Bacteria Trace, Urine Mucus Trace 01/12/25 10:16: WBC 12.9 H, RBC 5.69, Hgb 14.6, Hct 46.1, MCV 81.0, MCH 25.7 L, MCHC 31.7 L, RDW 13.7, Plt Count 340, MPV 12.0 H, Neut % (Auto) 71.7, Lymph % (Auto) 17.4, [place] % (Auto) 9.7 H, Eos % (Auto) 0.5, Baso % (Auto) 0.4, Neut # (Auto) 9.2 H, Lymph # (Auto) 2.2, Benton # (Auto) 1.3 H, Eos # (Auto) 0.1, Baso # (Auto) 0.1, Sodium 140, Potassium 4.1, Chloride 103, Carbon Dioxide 30, Anion Gap 11.1, BUN 13, Creatinine 1.00, Estimated GFR 88, Est GFR ( Amer) 107, Glucose 101 H, Lactate 1.6, Calcium 9.6, Total Bilirubin 1.2, AST 37, ALT 38, Alkaline Phosphatase 99, Total Protein 8.0, Albumin 4.9, Globulin 3.1, Al[place] min/Globulin Ratio 1.6, Lipase 68, HCV Ab DORA w/Rflx PCR Qn Negative, HIV Ag/Ab Combo Qual Negative I & O for Last 24 hours: Intake & Output 01/10/25 01/11/25 01/12/25 01/13/25 11:59 11:59 11:59 11:59 Weight 260 lb Constitutional Constitutional: no acute distress *Routine HEENT Exam Head: Present normocephalic Eye: Present EOMI ENT: Present mucous membranes moist *Routine Respiratory Exam Respiratory: Present CTA bilaterally *Routine Cardiovascular Exam Cardiovascular: Present RRR *Routine Abdominal Exam Abdominal: Present soft Comments: He has tenderness in the right lower quadrant at McBurney's point *Routine Rectal Exam Rectal:: deferred *Routine Genitalia Exam Genitalia:: deferred Results Results Lab Results Last 24 Hours:: Laboratory Results - last 24 hr 01/12/25 10:07: Urine Color Yellow, Urine Appearance Clear, Urine pH 6.0, Ur Specific [place] 1.025, Urine Protein Trace, Urine Glucose (UA) Negative, Urine Ketones Negative, Urine Blood Negative, Urine Nitrate Negative, Urine Bilirubin Negative, Urine Urobilinogen 0.2, Ur Leukocyte Esterase Trace, Urine RBC None, Urine WBC 3-5, Ur Squamous Epith Cells Occasional, Urine Bacteria Trace, Urine Mucus Trace 01/12/25 10:16: WBC 12.9 H, RBC 5.69, Hgb 14.6, Hct 46.1, MCV 81.0, MCH 25.7 L, MCHC 31.7 L, RDW 13.7, Plt Count 340, MPV 12.0 H, Neut % (Auto) 71.7, Lymph % (Auto) 17.4, Benton % (Auto) 9.7 H, Eos % (Auto) 0.5, Baso % (Auto) 0.4, Neut # (Auto) 9.2 H, Lymph # (Auto) 2.2, Benton # (Auto) 1.3 H, Eos # (Auto) 0.1, Baso # (Auto) 0.1, Sodium 140, Potassium 4.1, Chloride 103, Carbon Dioxide 30, Anion Gap 11.1, BUN 13, Creatinine 1.00, Estimated GFR 88, Est GFR ( Amer) 107, Glucose 101 H, Lactate 1.6, Calcium 9.6, Total Bilirubin 1.2, AST 37, ALT 38, Alkaline Phosphatase 99, Total Protein 8.0, Albumin 4.9, Globulin 3.1, Albumin/Globulin Ratio 1.6, Lipase 68, HCV Ab DORA w/Rflx PCR Qn Negative, HIV Ag/Ab Combo Qual Negative Assessment and Plan *Assessment and plan (1) Acute appendicitis: Status: Acute Category: Medical Code(s): K35.80 - Unspecified acute appendicitis Plan Plan to proceed with urgent laparoscopic possibly open appendectomy. Nature and details of the proposed procedure along with associated risks and expected outcome were explained to the patient.
[2025-01-12] MEDS: PIPERACILLIN/TAZO 3.375 GM in 0.9 % SODIUM CHLORIDE 50 ML IV (13:26)
--- NOTE | 2025-01-12 13:35 | PC.NURSE ---
pt placed in gown and non-skid socks. His belonging placed in belongings bag. Pt's mother is on her way. Pt's sister is at bedside and updated on
[2025-01-12] MEDS: 0.9 % SODIUM CHLORIDE 1000ML 1,000 ML 999 ML IV (13:39)
--- NOTE | 2025-01-12 14:11 | PC.NURSE ---
Pt to surgery with Nette Ceballos APRN
--- NOTE | 2025-01-12 14:42 | P.PNANES_ITS ---
[facility] Disclaimer: The information contained in this section may have been updated after the patient was seen, as this information can be updated by other users. Medical History Kidney stones Surgical History No significant past surgical history Family History Father Hyperlipidemia Hypertension Grandmother Hypertension Grandfather Diabetes Hyperlipidemia Hypertension Coronary artery disease Cancer prostate Social History Smoking Status: Never smoker quit status: considering quitting second hand exposure: No alcohol intake: current alcohol intake frequency: holidays/special occasions only substance use type: denies use current occupational status: employed Travel in the last 8 weeks?: None household members: family housing: house lives independently: Yes marital status: single Have you lived/traveled outside [place] in past 30 days?: No Contact w/someone who lives/traveled outside [place] past 30 days?: No Exposure to someone with infectious disease in past 14 days?: No Do you have a fever (greater than 100.4 F or 38 C)?: No Have you tested positive for COVID-19?: No Exposed to someone with COVID-19 in past 14 days?: No Do you have a sore throat?: No Do you have a cough?: No Do you have any weakness?: No Do you have any diarrhea?: No Are you experiencing any unusual bleeding?: No Do you have any muscle aches/pain?: No Do you have any abdominal pain?: Yes Are you experiencing loss of taste or smell?: No [facility] Anesthesia Checklist Patient Identification Patient Identification: Arm Band Structural Data Admitted From: Home Planned Operative Procedure/s: Laparoscopic Appendectomy Consent for Planned Operative Procedure(s) Verified: Yes Verified Documents: Surgical Consent and History and Physical NPO Status Verified Time NPO: 00:00 Additional verifications Anesthesia Reactions: No Hx Blood Transfusions: No Blood Transfusion Reaction: No Airway Assessment Mallampati Score:: Class II C-Spine Mobility Assessed: Yes TMJ Mobility Assessed: Yes Dentition: Good Dentition Neurological Assessment Level of Consciousness: Awake, Alert and Appropriate Anesthesia Plan Anesthesia Risk discussed: Yes Anesthesia Plan: Verified ASA Class: II Anesthesia Type: General
[2025-01-12] MEDS: CEFAZOLIN 1GM VIAL 2 GM (15:10)
[2025-01-12] MEDS: ROPIVACAINE 0.5% 30ML VIAL 150 MG (15:43)
[2025-01-12] MEDS: SODIUM CHLORIDE IRRIG SOLUTION 3,000 ML 3000 ML IR (15:44)
[2025-01-12] MEDS: LIDOCAINE 1% 20ML MDV 20 ML (15:44)
--- NOTE | 2025-01-12 16:11 | EXP.OP.NOTE ---
Date of procedure: 01/12/25 Pre-op Diagnosis:: Acute appendicitis Post-op Diagnosis:: Same Procedure performed:: Laparoscopic appendectomy Surgeon:: Diogenes Briscoe MD WOOD TURNER:: Arthur Frank Anesthesia: GETJoe Estimated blood loss (mL): 30 Clinical Note:: Patient is a 29-year-old male from [facility], otherwise healthy who had developed right lower quadrant pain overnight with some associated subjective fevers and chills. He had intolerance to oral intake. He presented to the emergency department where he seen and evaluated and found to have a leukocytosis of 12,900. He underwent CT scan which reveals findings of prominent 9 mm appendix with periappendiceal fat stranding consistent with uncomplicated acute appendicitis. Surgery was consulted and plan was made to make arrangements for urgent appendectomy. . Operative findings:: He had a partially retrocecal appendix. There is evidence of acute appendicitis characterized by edema, induration, erythema. Operative note:: Consent was obtained patient was taken the operating room. He was placed in a supine position. He was given preoperative intravenous antibiotics. General anesthesia was induced via endotracheal tube. Collazo catheter was placed. Abdomen was prepped and draped in the standard surgical fashion. Subumbilical skin incision was made while performing abdominal wall lift Veress needle was inserted. CO2 pneumoperitoneum was achieved to 15 mmHg. 12 mm optical trocar was inserted at the umbilicus. Intraperitoneal surveillance was carried out. 5 mm trocar was inserted in the suprapubic location to left the midline under laparoscopic visualization. Additional 5 mm trocar was inserted in the right upper abdomen. He was positioned in Trendelenburg and left side down. The appendix was identified. It was partially retrocecal with some peritoneal attachments. It was indurated and erythematous and thickened. The lateral peritoneal attachments were incised with a's ultrasonic harmonic carlos manuel. There was some fat encasing the appendix. Appendix was elevated anteriorly. Mesoappendix was divided with a's ultrasonic harmonic carlos manuel. Dissection was carried down to the appendiceal base. The appendix was divided at its base with an endoscopic ELLIOT linear cutting stapling device. Appendix was placed within an Endo Catch retrieval device and removed from the peritoneal cavity via the umbilical trocar site which required some minimal stretching of the fascial incision for delivery of the thickened appendix. There was noted to be some minor oozing from the appendiceal artery from its retroperitoneal origin. It was grasped and a couple of hemoclips were deployed resulting in good hemostasis. Residual fluid and blood was suctioned free. Limited irrigation was performed. Appendiceal stump and pericecal location were inspected for hemostasis and integrity which was assured. Trocars were then removed and CO2 pneumoperitoneum was evacuated. Fascia at the umbilicus was closed with a couple of 0 Vicryl sutures. Local anesthetic was infiltrated. Skin incisions were closed with 4-0 Monocryl in a subcuticular fashion. Steri-Strips and dressings were applied. , Condition: stable Disposition: PACU Complications:: None immediately apparent
--- NOTE | 2025-01-12 16:31 | EXP.ANES.I ---
[facility] Anesthesia Record Part I Anesthesia Record I Intake, IV Amount: 1,100 Hydration: Adequate Estimated blood loss (mL): 30 Urine output (mL): 200 Blood Products used (#): none Blood Pressure: 157/101 SaO2: 99 Pulse Rate: 97 Airway Patency: Patent Respiratory Rate: 24 Temperature: 98.2 F Patient is:: Drowsy and Stable Stable to PACU at:: 16:15
[2025-01-12] MEDS: MORPHINE 2MG/ML SYRINGE 2 MG IV ×3 (16:35→16:50)
[2025-01-12] MEDS: HYDROCODONE 10MG/APAP 325MG TAB 1 TAB PO (17:10)
[2025-01-12 17:14] LABS: Microscopic,Cath URINE MICROSCOPIC (MICROSCOPIC)
[2025-01-12 18:09] LABS: Bilirubin,Cath Negative (Negative); Blood, Urine/Cath TRACE-I (Negative); Color,Urine/Cath YELLOW (Yellow); Glucose,Urine/Cath (UA) Negative (Negative); Ketones,Urine/Cath Negative (Negative); Leukocyte Esterase,Cath Negative (Negative); Nitrate,Cath Negative (Negative); Protein,Urine/Cath Negative (Negative); Specific Gravity, Urine/Cath 1.015 (1.005-1.030); Urobilinogen,Cath 0.2 EU/dl (0.2)
[2025-01-12 18:16] LABS: Appearance,Urine/Cath Slightly Cloudy (Clear)
[2025-01-12 18:42] LABS: Squamous Epithelial Ur./Cath Occasional #/hpf (0-5); WBC,Urine/Cath Occasional #/hpf (0-3)
[2025-01-12 18:43] LABS: Bacteria,Urine/Cath TRACE /lpf
--- NOTE | 2025-01-13 07:47 | EXP.ANES.II ---
[facility] Anesthesia Record Part II Anesthesia Record Part II Discharge Time: 16:50 Destination: Surgical Day Care (OP Surgery) PACU nurse assessment reviewed?: Yes Patient Condition:: Good Anesthesia Complications:: None Swallowing reflex intact?: Yes Airway Patency: Patent Cyanosis?: No Blood Pressure: 149/69 SaO2: 99 Respiratory Rate: 16 Pulse Rate: 85 Temperature: 98.2 F Mental Status: Alert & Oriented Pain level:: 5 Nausea and/or vomitting:: None Intake, IV Amount: 0 Hydration: Adequate
[2025-01-13 07:48] VITALS: BP 149/69; PULSE 85; RESP 16; TEMP 36.8; O2SAT 99
== END 2025-01-12 17:23 | disposition home or self-care (01) ==
LOC: ER 13:06 → OR 13:39
PROVIDERS: Physician Assistant; Emergency Provider Student in an Organized Health Care Education/Training Program; PCP Family Medicine; Visit Provider Surgery
PROC: (CPT 44950; principal; 2025-01-12 14:30)
DX: K35.80 Unspecified acute appendicitis (principal); R10.31 Right lower quadrant pain; R50.9 Fever, unspecified; R11.0 Nausea
CPT/HCPCS: 44970; 74177; 80053; 81001; 83605; 83690; 85025; 86803; 87389; 96365; 96367; 96374; 96375; 99285; J1100; J1885; J2250; J2270; J2405; J2543; J3010; J7030; Q9967